=== PATIENT | male | born 1955 | race Caucasian/White ===

== ENCOUNTER 2017-03-25 10:01 | Outpatient (RCR) | payer BC | END 2017-04-03 | LOC: M CR 10:01 | PROVIDERS: ATTEND Internal Medicine Interventional Cardiology | DX: Z51.89 Encounter for other specified aftercare (principal); Z95.2 Presence of prosthetic heart valve ==

== ENCOUNTER 2017-04-26 10:42 | Outpatient (RCR) | payer BC | END 2017-05-03 | LOC: M CR 10:42 | PROVIDERS: ATTEND Internal Medicine Interventional Cardiology | DX: Z51.89 Encounter for other specified aftercare (principal) ==

== ENCOUNTER → 2019-01-21 | Outpatient (REF) | payer BC ==
[2019-01-21 14:07] LABS: HEMOGLOBIN 13.7 g/dl (13.5-17.5); MEAN CORPUSCULAR HEMOGLOBIN 29.7 pg (27.0-33.0); MEAN CORPUSCULAR HGB CONC 32.6 g/dl (32.0-36.5); MEAN CORPUSCULAR VOLUME 91.1 fl (80.0-96.0); PLATELET COUNT, AUTOMATED 448 10^3/uL (150-450); RED BLOOD COUNT 4.61 10^6/uL (4.30-6.10)
== END ==
LOC: M LAB REF 13:36
PROVIDERS: ATTEND Internal Medicine Pulmonary Disease
DX: R91.8 Other nonspecific abnormal finding of lung field (principal)

== ENCOUNTER → 2019-01-29 | Outpatient (CLI) | payer BC ==
[~2019-01-29] MED LIST: ASPI1TAB PO; ATOR1TAB19 PO; MULT1TAB10 PO; VITA100067 PO; VITA500T PO
--- NOTE | 2019-01-29 09:45 | REP ---
CT study of the chest without contrast: History: Nonspecific abnormal lung field finding. Comparison is made with [facility] CT study from January 15, 2019. CT findings: The study confirms the presence of a spiculated mass in the posteromedial aspect of the right upper lobe. This measures 7.2 cm in greatest craniocaudal dimension by 3.7 cm right to left by 4.4 cm anteroposterior. This has a broad abutment surface to the posterior medial pleural surface of the right upper lobe. There are some adjacent bronchi. There are several right pretracheal lymph nodes which are not pathologically enlarged. The largest of these measures 0.8 cm in short axis dimension. The patient is status post mitral valve replacement. No adrenal lesion mass lesion is seen. No bony destructive lesion is observed. There are fibrotic changes elsewhere in the right lower lobe and in the right middle lobe and left lower lobe. No other pulmonary nodule or mass lesion is observed. Impression: Large spiculated suspicious mass in the right upper lobe with equivocal mediastinal lymph nodes. Findings suggestive of primary lung malignancy. Electronically Signed by Jordan Villegas MD 01/29/2019 12:03 P
== END ==
LOC: M RAD 07:32
PROVIDERS: ATTEND Internal Medicine Pulmonary Disease
DX: R91.8 Other nonspecific abnormal finding of lung field (principal)

== ENCOUNTER 2019-02-03 11:17 | Day surgery (SDC) | payer BC ==
[~2019-02-03] VITALS: Ht 188 cm; Wt 79.8 kg
[2019-02-03] MEDS ORDERED: MIDAZOLAM INJ 2 MG/2 ML VIAL (J2250) As Ordered ONE (11:31)
[2019-02-03] MEDS ORDERED: fentaNYL 100 MCG/2 ML INJECTION (J3010) As Ordered ONE (11:32)
[2019-02-03] MEDS ORDERED: ROCURONIUM BROMIDE 50 MG/5 ML VIAL As Ordered ONE (11:33)
[2019-02-03] MEDS ORDERED: LIDOCAINE 2% INJ 100 MG/5 ML SDV (FOR ANES.) As Ordered ONE (11:33)
[2019-02-03] MEDS ORDERED: LR 1,000 ML IV ONE (12:00)
[2019-02-03] MEDS ORDERED: THROMBIN SOLN 5,000 UNITS VIAL As Ordered ONE (12:12)
[2019-02-03] MEDS ORDERED: LIDOCAINE 1% SDV INJ 30 ML VIAL As Ordered ONE (12:12)
[2019-02-03] MEDS ORDERED: CETACAINE SPRAY 5GM As Ordered ONE (12:12)
[2019-02-03] MEDS ORDERED: EPINEPHrine 1MG/10ML SYRINGE 1.5IN As Ordered ONE (12:12)
[2019-02-03] MEDS ORDERED: LIDOCAINE VISCOUS 2% SOLN 15ML UDC As Ordered ONE (12:13)
[2019-02-03] MEDS ORDERED: ONDANSETRON 4MG/2ML VIAL (J2405) As Ordered ONE (13:13)
[2019-02-03] MEDS ORDERED: dexameTHASONE 4 MG/ML 1ML VIAL (J1100) As Ordered ONE (13:13)
[2019-02-03] MEDS ORDERED: fentaNYL 100 MCG/2 ML INJECTION (J3010) IV PRN (14:30)
[2019-02-03] MEDS ORDERED: HYDROMORPHONE HCL 0.5 MG/ 0.5 ML SYRINGE (J1170 PER 1) IV PRN (14:30)
[2019-02-03] MEDS ORDERED: ONDANSETRON 4MG/2ML VIAL (J2405) IV PRN (14:30)
[2019-02-03] MEDS ORDERED: LR 1,000 ML IV SCH (14:30)
[2019-02-03] MEDS ORDERED: PERCOCET 5MG/325MG TAB PO PRN (14:30)
--- NOTE | 2019-02-03 14:45 | REP ---
CHEST, PORTABLE: AP portable view of the chest is performed. There is no pneumothorax. Medial right upper lobe opacity is noted. The heart is not enlarged. IMPRESSION: No pneumothorax. Medial right upper lobe opacity noted. Electronically Signed by Scooter Gaspar MD 02/03/2019 03:32 P
[2019-02-03 14:54] LABS: SOURCE RIGHT UPPER LOBE
[2019-02-03 14:55] LABS: APPEARANCE HAZY (CLEAR); COLOR COLORLESS (COLORLESS)
--- NOTE | 2019-02-03 15:08 | ROOR ---
Patient Name: Carlos Newby Procedure Date: 02/03/2019 12:18 PM Date of : 1955 Admit Type: Outpatient Age: 63 Note Status: Finalized Attending MD: Aubree Cardenas MD Procedure: Bronchoscopy Indications: Right upper lobe mass Providers: Aubree Cardenas MD (Doctor) Referring MD: Aydin Singh DO (Referring MD) Requesting Physician: Medicines: General Anesthesia, Cetacaine topical Complications: No immediate complications. Estimated blood loss: Minimal Procedure: Pre-Anesthesia Assessment: - Prior to the procedure, a History and Physical was performed, and patient medications and allergies were reviewed. The patient's tolerance of previous anesthesia was also reviewed. The risks and benefits of the procedure and the sedation options and risks were discussed with the patient. All questions were answered, and informed consent was obtained. Prior Anticoagulants: The patient has taken aspirin, last dose was day of procedure. ASA Grade Assessment: III - A patient with severe systemic disease. After reviewing the risks and benefits, the patient was deemed in satisfactory condition to undergo the procedure. The Bronchoscope was introduced through the mouth, via the endotracheal tube (the patient was intubated for the procedure) and advanced to the tracheobronchial tree of both lungs. The procedure was accomplished without difficulty. The patient tolerated the procedure well. Findings: Bilateral Lung Abnormalities: Bronchial mucosa bilaterally with areas of pitting and webbing and scattered areas of anthracotic pigmentation. There were some thick white/yellow secretions noted in right and left lung also. No obvious endobronchial lesions noted. Electromagnetic navigation bronchoscopy utilizing the Next [employer] system with iLogic upgrade was performed. The CT scan was used for planning purposes. A virtual bronchoscopic image was generated using the planning software and the jolanta, left lower lobe basilar segment, right upper lobe and right lower lobe basilar segment registration points were marked on the virtual image. The target in the apical segment of the right upper lobe was marked. A mass 4.4 by 3.7cm in size was found and a pathway was created. After a complete airway exam, the locatable guide/extended working channel was inserted and an automatic registration was performed by advancing the scope through the jolanta, left main bronchus jolanta, left lower lobe basilar segment, right upper lobe, right middle lobe and right lower lobe basilar segment. The navigation phase was then begun to locate the target lesion(s). Positioning centrally (in relation to the lesion) was confirmed using the Olympus radial probe US catheter. The locatable guide was removed from the extended working channel. Transbronchial needle aspirations of a mass were performed in the apical segment of the right upper lobe using a Daniels 21 gauge needle and also using a GenCut needle and sent for routine cytology. The procedure was guided by fluoroscopy. Transbronchial needle aspiration technique was selected because the sampling site was not visible endoscopically. Transbronchial biopsies of a mass were performed in the apical segment of the right upper lobe using forceps and sent for routine cytology. The procedure was guided by fluoroscopy. Transbronchial biopsy technique was selected because the sampling site was not visible endoscopically. Bronchoalveolar lavage was performed in the RUL apical segment (B1) of the lung and sent for cell count, bacterial culture, and fungal & AFB analysis and cytology. The return was cellular. There were no mucoid plugs in the return fluid. An endobronchial ultrasound endoscope was utilized in order to assist with fine needle aspiration in the subcarinal area and in the left hilum. A small right paratracheal lypmh node and right hilar lymph node were seen but not sampled due to their size and other adjacent structures on ultrasound. Transbronchial needle aspirations of lymph nodes were performed in the subcarinal area and in the left hilum using an Olympus EBUS-TBNA 21 gauge needle and sent for routine cytology. The procedure was guided by ultrasound. Estimated blood loss: minimal. Impression: - Right upper lobe mass - Areas of anthracotic pigmentation seen in bilateral bronchial mucosa and some white/yellow secretions, no endobronchial lesions. - Electromagnetic navigation bronchoscopy was performed. - A transbronchial needle aspiration was performed of lung mass. - Transbronchial lung biopsies were performed. - Bronchoalveolar lavage was performed. - Endobronchial ultrasound was performed. - A transbronchial needle aspiration was performed of lymph nodes. Recommendation: - Await test results. Attending Participation: I personally performed the entire procedure. Aubree Cardenas MD 02/03/2019 3:07:49 PM Number of Addenda: 0 Note Initiated On: 02/03/2019 12:18 PM
[2019-02-03 15:17] VITALS: BP 118/69
[2019-02-03 15:54] LABS: MONOCYTES/MACROPHAGES, BAL 6 %
== END 2019-02-03 15:17 | disposition home or self-care (01) ==
LOC: M SDC 11:17
PROVIDERS: ATTEND Internal Medicine Pulmonary Disease
DX: R91.8 Other nonspecific abnormal finding of lung field (principal); J44.9 Chronic obstructive pulmonary disease, unspecified; K21.9 Gastro-esophageal reflux disease without esophagitis; R06.02 Shortness of breath; M12.9 Arthropathy, unspecified; Z79.82 Long term (current) use of aspirin; Z77.22 Contact with and (suspected) exposure to environmental tobacco smoke (acute) (chronic)
CPT/HCPCS: 31624; 31627; 31628; 31629; 31652; 71045; 76000; 87070; 87077; 87102; 87116; 87184; 87205; 87206; 88108; 88305; 88313; 89051; J1100; J2250; J2405; J3010

== ENCOUNTER → 2019-03-05 | Outpatient (CLI) | payer BC ==
[~2019-03-05] MED LIST changes: -ASPI1TAB PO; +ASPI81TA26 PO
--- NOTE | 2019-03-06 05:28 | REP ---
Clinical: Abnormal lung field findings. Comparison: 01/29/2019. Technique: Axial noncontrast images from the thoracic inlet to the upper abdomen with coronal and sagittal re-formations. Findings: The mass-like area with spiculated margins identified on the prior examination within the medial right upper lobe has essentially completely resolved with only moderate amount of residual ill-defined opacity and suggested scarring (images 20-40). Minimal chronic subpleural scarring along the anterior right upper lobe and right middle lobe is again identified and unchanged. No new acute area of consolidation, nodule or mass lesion identified. No pleural effusion. No pneumothorax. No obvious adenopathy. Mediastinum is grossly unremarkable. There is evidence for prior mitral valve repair. Surrounding osseous structures are intact without focal osseous abnormality. Limited upper abdomen demonstrates normal bilateral adrenal glands. Impression: 1. The previously identified suspicious mass-like area with spiculations in the medial right upper lobe has essentially completely resolved with only minimal residual ill-defined opacity and scarring currently noted. Continued follow-up in 3-6 months may be warranted to confirm resolution/stability. 2. No new acute mediastinal or pleuroparenchymal process appreciated. Electronically Signed by Alon Kyle MD 03/06/2019 05:20 A
== END ==
LOC: M RAD 10:46
PROVIDERS: ATTEND Internal Medicine Pulmonary Disease
DX: R91.8 Other nonspecific abnormal finding of lung field (principal)

== ENCOUNTER → 2019-09-07 | Outpatient (CLI) | payer MEDICARE, BC ==
--- NOTE | 2019-09-07 07:50 | REP ---
CT of the chest without IV contrast: Comparisons are 01/29/2019 and 03/05/2019. On 01/29/2019 there is a large mass medially in the right upper lobe. This mass had resolved on 03/05/2019, except for a small persisting residual ill-defined opacity. On the study today this small residual opacity continues to decrease in size and is almost entirely resolved. The remaining density may represent chronic parenchymal scarring. Additionally, there is chronic subpleural parenchymal scarring inferiorly anteriorly in the right upper lobe and anteriorly in the right middle lobe, unchanged. There are no pleural effusions. There is no mediastinal or axillary lymph node enlargement. The study is insensitive for hilar lymph node enlargement in the absence of IV contrast. The unenhanced thoracic aorta is unremarkable. Cardiac size is normal. There is no pericardial effusion. Mitral valve replacement is again identified, unchanged. The visualized upper abdominal contents are unremarkable. There is no adrenal mass. There are no lytic, blastic or destructive skeletal changes. Impression: No significant interval change from 03/05/2019 except that the residual persisting density medially in the right upper lobe continues to decrease in size, the remaining density is likely parenchymal scarring. Chronic subpleural scarring anteriorly in the right upper lobe and right middle lobe, unchanged. Mitral valve replacement, unchanged. No pleural effusion. No adenopathy. Electronically Signed by Scooter Salgado MD 09/07/2019 07:41 A
== END ==
LOC: M RAD 07:13
PROVIDERS: ATTEND Internal Medicine Pulmonary Disease
DX: R91.8 Other nonspecific abnormal finding of lung field (principal)